=== PATIENT | male | born 2000 | race Caucasian/White ===

== ENCOUNTER 2019-02-09 01:58 | Emergency (ER) | payer SELFPAY ==
[2019-02-09] MEDS ORDERED: Diphtheria,Pertussis(Acell),Tetanus Vaccine 0.5 ML SDV IM ONE (02:39)
--- NOTE | 2019-02-09 02:43 | EDM.PDOC ---
ED HPI GENERAL MEDICAL PROBLEM - General Stated Complaint: CUT FINGER Time Seen by Provider: 02/09/19 02:25 Source of Information: Reports: Patient History Limitations: Reports: No Limitations - History of Present Illness INITIAL COMMENTS - FREE TEXT/NARRATIVE: c/o finger lac pt cut finger on a can lid, did not want sutures as he "hates needles", sutures not needed does not know his last Td, has stated he will not get a Td, risk of lockjaw and discussed ED ROS GENERAL - Review of Systems Review Of Systems: See Below Constitutional: Reports: No Symptoms HEENT: Reports: No Symptoms Respiratory: Reports: No Symptoms Cardiovascular: Reports: No Symptoms Endocrine: Reports: No Symptoms GI/Abdominal: Reports: No Symptoms : Reports: No Symptoms Musculoskeletal: Reports: No Symptoms Skin: Reports: Wound Neurological: Reports: No Symptoms Psychiatric: Reports: No Symptoms Hematologic/Lymphatic: Reports: No Symptoms Immunologic: Reports: No Symptoms ED EXAM, SKIN/RASH Exam: See Below Exam Limited By: No Limitations General Appearance: Alert, WD/WN, No Apparent Distress Skin: Other (R index finger on the palmar aspect of the middle phalange is a curvilinear 1.3 cm lac that is angled and superficial, no f.b., into adipose tissue only, cleaned, patted dry, tincture of benzoin SS x 6 and bandaids x 2 used for closure with good apposition of edges, should heal well, tolerated well ) Departure - Departure Time of Disposition: 02:38 Disposition: Home, Self-Care 01 Condition: Good Clinical Impression: Laceration of finger - Discharge Information *PRESCRIPTION DRUG MONITORING PROGRAM REVIEWED*: Not Applicable *COPY OF PRESCRIPTION DRUG MONITORING REPORT IN PATIENT KATYA: Not Applicable Instructions: Sterile Tape Wound Care Referrals: PCP,None [Primary Care Provider] - Additional Instructions: Keep laceration clean and dry and covered with a dressing for 5 days. See a physician the same day for any increase in redness, swelling, pain, warmth , fever or drainage.
== END 2019-02-09 02:55 | disposition home or self-care (01) ==
LOC: FB.ED 01:58
DX: S61.210A Laceration without foreign body of right index finger without damage to nail, initial encounter (principal); W26.8XXA Contact with other sharp object(s), not elsewhere classified, initial encounter
CPT/HCPCS: 99283